=== PATIENT | female | born 2000 | race Hispanic/Latino ===

== ENCOUNTER 2024-08-17 15:50 | Emergency (ER) | payer OTHER ==
[~2024-08-17] VITALS: Ht 154.9 cm; Wt 68.0 kg
[2024-08-17] MEDS ORDERED: IBUP200T46 PO (16:07)
[2024-08-17] MEDS: IBUPROFEN 600MG TAB PO ONE (20:08)
[2024-08-17 21:33] VITALS: BP 116/78; TEMP 97.5; O2SAT 99
== END 2024-08-17 21:35 | disposition home or self-care (01) ==
LOC: M ED 15:50
DX: M94.0 Chondrocostal junction syndrome [Tietze] (principal); F10.10 Alcohol abuse, uncomplicated; Z79.1 Long term (current) use of non-steroidal anti-inflammatories (NSAID); Z90.89 Acquired absence of other organs